=== PATIENT | female | born 1960 | race Caucasian/White ===

== ENCOUNTER → 2016-07-10 | Outpatient (CLI) | payer OTHER | LOC: KOH-I 08:30 | DX: E03.9 Hypothyroidism, unspecified (principal); R22.1 Localized swelling, mass and lump, neck; E04.1 Nontoxic single thyroid nodule | CPT/HCPCS: 76536 ==

== ENCOUNTER → 2020-06-05 | Outpatient (CLI) | payer OTHER | LOC: NM 12:15 | DX: R94.5 Abnormal results of liver function studies (principal); R11.0 Nausea; Z53.8 Procedure and treatment not carried out for other reasons ==

== ENCOUNTER → 2020-09-12 | Outpatient (CLI) | payer OTHER | LOC: EXRD 08:16 → MAMO 08:16 → EXRD 08:30 → MAMO 09:00 | DX: Z12.31 Encounter for screening mammogram for malignant neoplasm of breast (principal); Z78.0 Asymptomatic menopausal state | CPT/HCPCS: 77063; 77067; 77080 ==

== ENCOUNTER → 2020-10-07 | Outpatient (CLI) | payer OTHER | LOC: EXRD 10:42 | DX: M54.5 Low back pain (principal); M54.6 Pain in thoracic spine; M47.814 Spondylosis without myelopathy or radiculopathy, thoracic region | CPT/HCPCS: 72070; 72100 ==